=== PATIENT | female | born 1940 | race Caucasian/White ===

== ENCOUNTER → 2016-11-30 | Outpatient (CLI) | payer OTHER, BC ==
[~2016-11-30] MED LIST: ACET-1138 PO; ACET-1256 PO; ACET325T96 PO; ALT25 PO; ASPEC325 PO; ASPI81TA28 PO; BISA10SU7 RE; CEPH500C PO; DOCU-94 PO; DOCU100C31 PO; FRRG PO; GLUC10007 PO; INDA1TAB3 PO; LISI-461 PO; METO25TA3 PO; MOML PO; MULT-506 PO; MULT-614 PO; NAPR1TAB9 PO; NF656 TOP; POLY335019 PO; SENN-61 PO; TRAM-10 PO; VISCOUS LIDOCAINE
--- NOTE | 2016-11-30 12:15 | DIAGNOSTIC IMAGING REPORT ---
RIGHT HIP 2 VIEWS CLINICAL HISTORY: Right hip pain. FINDINGS: AP and frog-leg views the right hip are compared to study dated 07/13/2016. The skeletal structures are osteopenic. No fracture is seen. Advanced arthritic change is present in the right hip, with near complete loss of the joint space. There is flattening of the femoral head with sclerosis and subchondral cyst formation present within both the femoral head and the acetabulum. Sclerotic change is also seen in the right sacroiliac joint. Lumbosacral spondylosis is partially imaged. An enthesophyte arises from the right anterior superior iliac spine. The overlying soft tissues are normal as visualized. Numerous phleboliths are observed in the pelvis. IMPRESSION: 1. No acute bony abnormality is identified. 2. Osteopenia and advanced arthritic change of the right hip as detailed above. This is unchanged to modestly progressed from 07/13/2016. Electronically signed by: Elmo Ramey M.D. 11/30/2016 12:14 PM Dictated Date/Time: 11/30/2016 12:10 PM
== END | disposition home or self-care (01) ==
LOC: C.RAD1850 11:57
PROVIDERS: ATTEND Physician Assistant
DX: M25.551 Pain in right hip (principal); M85.88 Other specified disorders of bone density and structure, other site; M16.11 Unilateral primary osteoarthritis, right hip

== ENCOUNTER → 2017-01-04 | Outpatient (CLI) | payer OTHER, BC ==
[2017-01-04 17:19] LABS: BASO % 0.2 %; BASO ABS # 0.02 K/uL (0-0.2); COMPLETE YES; EOS % 1.2 %; IG% 0.1 %; LYMPH % 16.4 %; LYMPH ABS # 1.49 K/uL (1.2-3.4); MEAN CELL VOLUME 89.9 fL (80-100); MEAN CORPUSCULAR HEMOGLOBIN 30.5 pg (25-34); MEAN CORPUSCULAR HGB CONC 33.9 g/dl (32-36); MEAN PLATELET VOLUME 10.5 fL (7.4-10.4); MONO % 3.3 %; NEUT % 78.8 %; PLATELET COUNT 238 K/uL (130-400); RED BLOOD COUNT 3.67 M/uL (4.2-5.4); WHITE BLOOD COUNT 9.09 K/uL (4.8-10.8)
[2017-01-04 17:49] LABS: BLOOD UREA NITROGEN 29 mg/dl (7-18); BUN/CREATININE RATIO 28.5 (10-20); CALCIUM 8.8 mg/dl (8.5-10.1); CARBON DIOXIDE 29 mmol/L (21-32); CHLORIDE 108 mmol/L (98-107); GLUCOSE 98 mg/dl (70-99); SODIUM 145 mmol/L (136-145)
== END | disposition home or self-care (01) ==
LOC: C.LAB1850 16:08
PROVIDERS: ATTEND Internal Medicine
DX: I10 Essential (primary) hypertension (principal)

== ENCOUNTER → 2017-01-23 | Outpatient (CLI) | payer OTHER, BC | END | disposition home or self-care (01) | LOC: C.LABSPEC 11:30 | PROVIDERS: ATTEND Internal Medicine | DX: M25.551 Pain in right hip (principal) ==

== ENCOUNTER → 2017-01-26 | Outpatient (CLI) | payer OTHER, BC ==
[~2017-01-26] MED LIST changes: -MULT-506 PO
[2017-01-26 12:38] LABS: FERRITIN 265.2 ng/ml (8.0-388.0)
== END | disposition home or self-care (01) ==
LOC: C.LAB1850 10:15
PROVIDERS: ATTEND Internal Medicine
DX: D64.9 Anemia, unspecified (principal)

== ENCOUNTER → 2017-02-08 | Outpatient (CLI) | payer OTHER, BC ==
[2017-02-10 18:34] LABS: ALBUMIN 4.5 G/DL (3.8-4.8); TOTAL PROTEIN 7.5 G/DL (6.2-8.3)
== END | disposition home or self-care (01) ==
LOC: C.LAB1850 11:59
PROVIDERS: ATTEND Internal Medicine
DX: Z00.00 Encounter for general adult medical examination without abnormal findings (principal)

== ENCOUNTER 2017-02-18 05:16 | Inpatient (IN) | payer OTHER, BC ==
[2017-01-24 10:57] VITALS: BMI 26.0
--- NOTE | 2017-01-24 11:30 | PAT Medication Instructions ---
Service Date Jan 24, 2017. Current Home Medication List Acetaminophen Tab (Tylenol), 325 MG PO Q4H Aspirin (Aspirin Ec), 81 MG PO QAM Docusate Sodium (Colace), 1 CAP PO BID Glucosamine Sulfate (Glucosamine), 1,000 MG PO BID Indapamide (Lozol), 1.25 MG PO QAM Metoprolol Succ (Toprol Xl) (Toprol-Xl), 25 MG PO BID Naproxen (Aleve), 220 MG PO PRN Ramipril (Altace *), 2.5 MG PO QAM Tramadol (Ultram), 50 MG PO Q4H PRN for Pain Medication Instructions For Your Scheduled Surgery - Check with surgeon for instructions: Naproxen (Aleve), 220 MG PO PRN - Hold the following medications 2 weeks prior to surgery: Glucosamine Sulfate (Glucosamine), 1,000 MG PO BID - Hold the following medications the morning of surgery: Docusate Sodium (Colace), 1 CAP PO BID Ramipril (Altace *), 2.5 MG PO QAM Indapamide (Lozol), 1.25 MG PO QAM - Take the following medications the morning of surgery with a sip of water: Metoprolol Succ (Toprol Xl) (Toprol-Xl), 25 MG PO BID Acetaminophen Tab (Tylenol), 325 MG PO Q4H (if needed) Tramadol (Ultram), 50 MG PO Q4H PRN for Pain (okay to take up to 4 hours prior to surgery if needed) Aspirin (Aspirin Ec), 81 MG PO QAM (okay to continue per surgeon) - Take the following medications as scheduled the night before surgery: Metoprolol Succ (Toprol Xl) (Toprol-Xl), 25 MG PO BID Acetaminophen Tab (Tylenol), 325 MG PO Q4H (if needed) Tramadol (Ultram), 50 MG PO Q4H PRN for Pain (if needed) If you have any questions please call us at [phone] or [phone] or [phone]
[2017-01-24 11:58] LABS: BASO % 0.1 %; BASO ABS # 0.01 K/uL (0-0.2); COMPLETE YES; EOS % 1.1 %; HEMATOCRIT 32.7 % (37-47); IG% 0.3 %; LYMPH % 15.7 %; LYMPH ABS # 1.14 K/uL (1.2-3.4); MEAN CELL VOLUME 88.9 fL (80-100); MEAN CORPUSCULAR HEMOGLOBIN 29.6 pg (25-34); MEAN CORPUSCULAR HGB CONC 33.3 g/dl (32-36); MEAN PLATELET VOLUME 9.9 fL (7.4-10.4); MONO % 2.9 %; NEUT % 79.9 %; PLATELET COUNT 232 K/uL (130-400); RED BLOOD COUNT 3.68 M/uL (4.2-5.4); WHITE BLOOD COUNT 7.25 K/uL (4.8-10.8)
[2017-01-24 12:08] LABS: PARTIAL THROMBOPLASTIN RATIO 0.9; PROTHROMBIN TIME (PATIENT) 10.7 SECONDS (9.0-12.0)
--- NOTE | 2017-01-24 12:19 | DIAGNOSTIC IMAGING REPORT ---
CHEST PREADMISSION(PA/LAT) CLINICAL HISTORY: Preoperative evaluation. COMPARISON STUDY: Chest radiograph June 13, 2007. FINDINGS: Right axillary surgical clips are noted. There is no pneumothorax or pleural effusion. There is no evidence of pulmonary edema. Cardiomediastinal silhouette is stable. IMPRESSION: No acute cardiopulmonary findings. Electronically signed by: Jeffery Garza M.D. 01/24/2017 12:18 PM Dictated Date/Time: 01/24/2017 12:17 PM
--- NOTE | 2017-02-14 22:27 | History and Physical ---
History & Physical Date Feb 14, 2017. Chief Complaint Right Hip Pain History of Present Illness The patient is a 77 year old female with complaints of right hip pain starting several months ago. It has gotten worse quickly to the point that she has been using a cane to get around the last several months. Mostly groin and thigh pain. Failed NSAID and Tramadol management. Past Medical/Surgical History HTN Breast Cancer Anxiety Mastectomy Oophorectomy Additional History Hepatic Disease: No Endocrine Disorder: No Kidney Disease: No Hypertension: Yes Heart Disease: No Bleeding Tendencies: No Infectious Diseases: No Allergies Coded Allergies: Povidone (Verified Allergy, Unknown, REDNESS, 01/24/17) Home Medications Scheduled Acetaminophen Tab (Tylenol), 325 MG PO Q4H Aspirin (Aspirin Ec), 81 MG PO QAM Docusate Sodium (Colace), 1 CAP PO BID Glucosamine Sulfate (Glucosamine), 1,000 MG PO BID Indapamide (Lozol), 1.25 MG PO QAM Metoprolol Succ (Toprol Xl) (Toprol-Xl), 25 MG PO BID Naproxen (Aleve), 220 MG PO PRN Ramipril (Altace *), 2.5 MG PO QAM Scheduled PRN Tramadol (Ultram), 50 MG PO Q4H PRN for Pain Physical Examination Skin: warm/dry, no rash Eyes: normal inspection, EOMI, sclerae normal ENT: normal ENT inspection, pharynx normal Head: normocephalic, atraumatic Neck: supple, no adenopathy, trachea midline Respiratory/Chest: lungs clear, normal breath sounds, no respiratory distress Cardiovascular: regular rate, rhythm, no edema, no murmur Abdomen / GI: normal bowel sounds, non tender Back: normal inspection Extremities: normal inspection, normal range of motion Neurologic/Psych: no motor/sensory deficits, alert, normal reflexes, oriented x 3 Addiitonal Comments: X-rays - Advanced Right Hip DJD with loss of joint space and cystic changed of femoral head and acetabulum Diagnosis Advanced Right Hip DJD Plan of Treatment Right Total Hip Arthroplasty
[~2017-02-18] VITALS: Ht 162.6 cm; Wt 70.0 kg
[2017-02-18] VITALS (18 sets, daily range): BP systolic 108–148; BP diastolic 64–86; PULSE 74–102; TEMP 36.3–37.6; O2SAT 94–100; Ht 162.6 cm; Wt 70.0 kg
[~2017-02-18 05:16] MED LIST changes: -ACET-1138 PO; -ACET-1256 PO; -ASPEC325 PO; -BISA10SU7 RE; -CEPH500C PO; -DOCU100C31 PO; -FRRG PO; -GLUC10007 PO; -INDA1TAB3 PO; -LISI-461 PO; -METO25TA3 PO; -MOML PO; -MULT-614 PO; -NF656 TOP; -POLY335019 PO; -SENN-61 PO; -VISCOUS LIDOCAINE
[2017-02-18] MEDS ORDERED: FAMOTIDINE 20 MG TAB PO SCH (06:00)
[2017-02-18] MEDS ORDERED: LACTATED RINGER'S 1000ML 1,000 ML IV SCH (06:00)
[2017-02-18] MEDS ORDERED: SCOPOLAMINE 1.5 MG TDSY TD SCH (06:00)
[2017-02-18] MEDS ORDERED: GABAPENTIN 300 MG CAP PO SCH (06:00)
[2017-02-18] MEDS ORDERED: METOCLOPRAMIDE HCL 10 MG TAB PO SCH (06:00)
[2017-02-18] MEDS ORDERED: ACETAMINOPHEN 500 MG TAB PO SCH (06:00)
[2017-02-18] MEDS ORDERED: TRANEXAMIC ACID INJ 1,000 MG in SODIUM CHLORIDE 0.9% 100ML 100 ML IV SCH ×2 (06:00→16:00)
[2017-02-18] MEDS ORDERED: CEFAZOLIN 2000 MG/60 ML D5W 60 ML IV SCH (06:00)
[2017-02-18] MEDS ORDERED: LACTATED RINGER'S 1000ML 500 ML IV ONE (06:00)
[2017-02-18] MEDS ORDERED: LACTATED RINGER'S 1000ML IV SCH (06:00)
[2017-02-18] MEDS ORDERED: BUPIVACAINE 0.5 % 5 MG/1 ML PF 10ML VIAL ONE (06:39)
[2017-02-18] MEDS ORDERED: MIDAZOLAM HCL 1 MG/ML 2ML VIAL ONE (06:41)
[2017-02-18] MEDS ORDERED: MoRPHine SULFATE PF 1 MG/ML 10 ML AMP/VIAL ONE (06:47)
[2017-02-18] MEDS ORDERED: BACITRACIN 50000 UNIT VIAL ONE (06:50)
[2017-02-18] MEDS ORDERED: BUPIVACAINE/EPINEPHRINE 0.5% MPF 1:200,000 10 ML VIAL ONE ×2 (06:50→06:52)
--- NOTE | 2017-02-18 06:52 | History & Physical Bridge Note ---
H&P Re-Evaluation Bridge Note: I have examined the patient, reviewed the History & Physical and in the interval since the performance of the History & Physical I have noted the following changes of clinical significance: No changes noted
[2017-02-18] MEDS ORDERED: LIDOCAINE HCL 2% 2 ML VIAL (20MG/ML) ONE (07:11)
[2017-02-18] MEDS ORDERED: PROPOFOL IV EMULSION 10 MG/ML 20 ML VIAL IV ONE (07:11)
[2017-02-18] MEDS ORDERED: PHENYLEPHRINE 100MCG/ML 5ML SYR ONE (08:12)
--- NOTE | 2017-02-18 08:28 | [facility] Post Operative Brief Note ---
Immediate Operative Summary Operative Date Feb 18, 2017. Pre-Operative Diagnosis Right hip degenerative joint disease Post-Operative Diagnosis Right hip degenerative joint disease Procedure(s) Performed Right Total Hip Arthroplasty; Uncemented Surgeon Dr. Obando Lard Refiner Surgeon(s) Will Bae PA-C Estimated Blood Loss 200CC Findings Right Hip DJD Fluids (cc crystalloids) 1000 cc Specimens A. Right femoral head Drains None Anesthesia Spinal Complication(s) None Disposition Recovery Room / PACU
[2017-02-18] MEDS ORDERED: TRAMADOL HCL 50 MG TAB PO PRN ×2 (08:30→23:00)
[2017-02-18] MEDS ORDERED: SILVER SULFADIAZINE 1% CR 50 GM JAR EXT PRN (08:30)
[2017-02-18] MEDS ORDERED: BISACODYL 10 MG SUPP PR PRN (08:30)
[2017-02-18] MEDS ORDERED: MAGNESIUM HYDROXIDE SUSP 30 ML UDC PO PRN (08:30)
[2017-02-18] MEDS ORDERED: ALUMINUM/MAGNESIUM/SIMETH (MAALOX MAX) 30 ML UDC PO PRN (08:30)
[2017-02-18] MEDS ORDERED: NALOXONE HCL INJ 0.08 MG in SYRINGE 1.8 ML IV PRN (08:51)
[2017-02-18] MEDS ORDERED: LACTATED RINGER'S 1000ML 500 ML IV PRN (08:51)
[2017-02-18] MEDS ORDERED: NALOXONE HCL INJ 1 MG in SODIUM CHLORIDE 0.9% 1000ML 1,000 ML IV PRN ×4 (08:51)
[2017-02-18] MEDS ORDERED: SODIUM CHLORIDE 0.9% 1000ML 1,000 ML IV PRN (08:51)
--- NOTE | 2017-02-18 08:56 | DIAGNOSTIC IMAGING REPORT ---
RIGHT PELVIS/UNILATERAL HIP 1 VIEW CLINICAL HISTORY: 77 years-old Female presenting with status post right hip arthroplasty. TECHNIQUE: Portable frontal view of the pelvis and lateral view of the right hip were obtained. COMPARISON: 01/10/2017 radiograph of the pelvis and 11/30/2016 radiograph of the right hip. FINDINGS: Patient is status post total right hip arthroplasty. No apparent hardware complication. Extensive soft tissue emphysema and overlying skin alysia, expected postsurgical findings. Left hip joint congruent. No acute osseous injury or malalignment. Dietrich catheter in place. Multiple phleboliths. Normal pelvic bowel gas pattern. IMPRESSION: Expected postsurgical finding status post total right hip arthroplasty. Electronically signed by: Torin Ramos M.D. 02/18/2017 8:55 AM Dictated Date/Time: 02/18/2017 8:53 AM
[2017-02-18] MEDS ORDERED: ATROPINE SULFATE 0.1 MG/ML 5ML SYR IV PRN (09:00)
[2017-02-18] MEDS ORDERED: KETOROLAC TROMETHAMINE 15 MG/ML VIAL IV. PRN (09:00)
[2017-02-18] MEDS ORDERED: NALBUPHINE HCL INJ 10 MG/ML AMP IV PRN (09:00)
[2017-02-18] MEDS ORDERED: NALOXONE HCL 0.4 MG/1 ML VIAL/CARP IV PRN (09:00)
[2017-02-18] MEDS ORDERED: EpHEDrine SULFATE INJ 50 MG/ML AMP IV PRN ×2 (09:00)
[2017-02-18] MEDS ORDERED: KETOROLAC TROMETHAMINE 30 MG/ML VIAL IV. PRN (09:00)
[2017-02-18] MEDS ORDERED: MEPERIDINE HCL 25 MG/ML CARP IV PRN (09:00)
[2017-02-18] MEDS ORDERED: DiphenhydrAMINE HCL 50 MG/ML VIAL IV PRN (09:00)
[2017-02-18] MEDS ORDERED: HYDROmorphone INJ 2 MG/ML SYR/VIAL IV PRN (09:00)
[2017-02-18] MEDS ORDERED: MoRPHine SULFATE PF 1 MG/ML 10 ML AMP/VIAL EPI PRN (09:00)
[2017-02-18] MEDS ORDERED: NO NARCOTICS OR SEDATIVES SCH (09:00)
[2017-02-18] MEDS ORDERED: PHENYLEPHRINE 100MCG/ML 5ML SYR IV PRN (09:00)
[2017-02-18] MEDS ORDERED: PROMETHAZINE HCL INJ 6.25 MG in SODIUM CHLORIDE 0.9% 50ML 50 ML IV PRN (09:00)
[2017-02-18] MEDS ORDERED: ONDANSETRON INJ 2 MG/ML 2 ML VIAL IV PRN ×3 (09:00→23:00)
--- NOTE | 2017-02-18 09:54 | Anesthesiology Progress Note ---
Anesthesia Post Op Note Date & Time Feb 18, 2017 at 09:54 Vital Signs Pain Intensity: 0 Vital Signs Past 12 Hours Date Time Temp Pulse Resp B/P (MAP) Pulse Ox O2 Delivery O2 Flow Rate FiO2 02/18/17 09:12 75 16 100 02/18/17 09:12 75 16 02/18/17 09:11 112/63 02/18/17 09:07 74 20 100 02/18/17 09:07 74 20 02/18/17 09:06 117/62 02/18/17 09:02 75 18 02/18/17 09:02 77 18 100 02/18/17 09:01 134/54 02/18/17 09:00 36.8 02/18/17 08:59 81 18 100 02/18/17 08:59 78 18 02/18/17 08:56 127/73 02/18/17 08:54 79 18 100 02/18/17 08:54 77 18 02/18/17 08:53 80 14 02/18/17 08:53 82 14 100 02/18/17 08:52 110/56 02/18/17 08:48 80 22 100 02/18/17 08:48 81 22 02/18/17 08:43 78 15 97 02/18/17 08:43 77 15 02/18/17 08:42 126/47 02/18/17 08:39 79 16 100 02/18/17 08:39 78 16 02/18/17 08:36 115/50 02/18/17 08:34 82 15 02/18/17 08:34 81 15 97 02/18/17 08:31 126/46 02/18/17 08:30 122/64 02/18/17 08:29 36.4 88 16 122/64 100 Mask 10 02/18/17 08:29 16 02/18/17 08:29 87 16 02/18/17 05:58 36.5 92 20 148/86 99 Room Air Notes Mental Status: alert / awake / arousable, participated in evaluation Pt Amnestic to Procedure: Yes Nausea / Vomiting: adequately controlled Pain: adequately controlled Airway Patency, RR, SpO2: stable & adequate BP & HR: stable & adequate Hydration State: stable & adequate Anesthetic Complications: no major complications apparent
[2017-02-18] MEDS: DOCUSATE SODIUM 100 MG CAP PO SCH ×2 (10:52→21:18)
[2017-02-18] MEDS: ASPIRIN 325 MG ECTAB PO SCH ×2 (10:53→21:18)
[2017-02-18] MEDS: INDAPAMIDE 1.25 MG TAB PO SCH (10:53)
[2017-02-18] MEDS: CEROVITE ADV FORMULA TAB PO SCH (10:53)
[2017-02-18] MEDS: MULTIVITAMIN TAB PO SCH (10:53)
[2017-02-18] MEDS: PANTOprazole SOD 40 MG TAB PO SCH (10:53)
[2017-02-18] MEDS: D5W AND 1/2NSS + 20MEQ KCL 1,000 ML IV SCH ×2 (11:53→21:18)
[2017-02-18] MEDS: FERROUS GLUCONATE 324 MG TAB PO SCH ×2 (13:28→17:55)
[2017-02-18] MEDS: CEFAZOLIN IV 1,000 MG in DEXTROSE 5% 50ML 50 ML IV SCH ×2 (13:56→21:19)
--- NOTE | 2017-02-18 14:10 | PROGRESS NOTE ---
DATE: 02/18/2017 DATE: 02/18/2017. SUBJECTIVE: A 77-year-old female postop from a right total hip replacement. She is doing well. Not having any pain yet. No chest pain or shortness of breath. Not feeling dizzy or lightheaded. OBJECTIVE: VITAL SIGNS: Temperature 36.5. Vital signs stable. PHYSICAL EXAMINATION: GENERAL: Reveals a pleasant elderly female. She is sitting up in bed and looks pretty comfortable. She is talking to her son. LUNGS: Clear to auscultation. HEART: Regular rate and rhythm. ABDOMEN: Soft, nontender, nondistended. EXTREMITY EXAMINATION: Grossly neurovascularly intact except as follows: Examination of the right leg reveals leg lengths to be equal. Hip is located. Dressing is clean, dry and intact. Thigh is soft and supple. She can dorsiflex and plantarflex her foot appropriately. She is neurologically intact. X-RAYS: X-rays of the right hip from recovery room were reviewed. It shows right uncemented total hip arthroplasty. The components looked to be in good position. No signs of problems. ASSESSMENT: A 77-year-old female postop from a right total hip replacement, doing well. Pain is controlled. Hip is located. She is neurologically intact. PLAN: 1. DVT prophylaxis including thigh-high TEDs, SCDs, and aspirin twice a day. 2. PT/OT. Weight bear as tolerated. Right total hip protocol. 3. Pain control. Doing well with current pain regimen. 4. IV antibiotics x24 hours. 5. Disposition. She is hoping to be discharged to [facility] for rehab stay. If not [facility] maybe [place].
[2017-02-18] MEDS: CHECK SCOPOLAMINE PATCH PLACEMENT SCH ×2 (16:18→23:33)
[2017-02-18] MEDS: SENNA 8.6 MG TAB PO SCH (21:18)
[2017-02-18] MEDS: METOPROLOL SUCC 25MG EXT REL TAB PO SCH (21:18)
[2017-02-18] MEDS ORDERED: DC INTRASPINAL MORPHINE SCH (23:00)
[2017-02-18] MEDS ORDERED: HYDROmorphone INJ 0.5 MG/0.5 ML SYR IV PRN (23:00)
[2017-02-18] MEDS ORDERED: ZOLPIDEM TARTRATE 5 MG TAB PO PRN (23:00)
[2017-02-18] MEDS ORDERED: METOCLOPRAMIDE HCL INJ 5 MG/ML 2 ML VIAL IV PRN (23:00)
[2017-02-18] MEDS: KETOROLAC TROMETHAMINE 15 MG/ML VIAL IV. SCH (23:09)
[2017-02-19 03:54] VITALS: BP 121/70; PULSE 83; TEMP 36.9; O2SAT 98
[2017-02-19] MEDS: KETOROLAC TROMETHAMINE 15 MG/ML VIAL IV. SCH ×4 (05:23→22:51)
[2017-02-19 06:27] LABS: BASO % 0.1 %; BASO ABS # 0.01 K/uL (0-0.2); EOS % 0.3 %; HEMATOCRIT 25.4 % (37-47); IG% 0.2 %; LYMPH % 8.4 %; LYMPH ABS # 0.74 K/uL (1.2-3.4); MEAN CELL VOLUME 89.1 fL (80-100); MEAN CORPUSCULAR HEMOGLOBIN 29.5 pg (25-34); MEAN CORPUSCULAR HGB CONC 33.1 g/dl (32-36); MEAN PLATELET VOLUME 10.1 fL (7.4-10.4); PLATELET COUNT 163 K/uL (130-400); RED BLOOD COUNT 2.85 M/uL (4.2-5.4); WHITE BLOOD COUNT 8.78 K/uL (4.8-10.8)
[2017-02-19] MEDS: D5W AND 1/2NSS + 20MEQ KCL 1,000 ML IV SCH (06:44)
[2017-02-19 06:59] LABS: BUN/CREATININE RATIO 21.7 (10-20); CALCIUM 8.2 mg/dl (8.5-10.1); CREATININE 1.1 mg/dl (0.60-1.20); POTASSIUM 3.6 mmol/L (3.5-5.1)
[2017-02-19 07:05] LABS: COMPLETE YES
[2017-02-19 07:22] VITALS: BP 125/74; PULSE 75; TEMP 36.9; O2SAT 95
[2017-02-19] MEDS ORDERED: FRRG PO (08:45)
[2017-02-19] MEDS ORDERED: ACET-1138 PO (08:45)
[2017-02-19] MEDS ORDERED: ASPEC325 PO (08:45)
[2017-02-19] MEDS ORDERED: TRAM-10 PO (08:46)
[2017-02-19] MEDS: CHECK SCOPOLAMINE PATCH PLACEMENT SCH ×2 (08:47→16:25)
[2017-02-19] MEDS: DOCUSATE SODIUM 100 MG CAP PO SCH ×2 (08:48→21:08)
[2017-02-19] MEDS: ASPIRIN 325 MG ECTAB PO SCH ×2 (08:48→21:08)
[2017-02-19] MEDS: ENALAPRIL MALEATE 10 MG TAB PO SCH (08:49)
[2017-02-19] MEDS: FERROUS GLUCONATE 324 MG TAB PO SCH ×3 (08:49→17:41)
[2017-02-19] MEDS: CEROVITE ADV FORMULA TAB PO SCH (08:49)
[2017-02-19] MEDS: METOPROLOL SUCC 25MG EXT REL TAB PO SCH ×2 (08:49→21:00)
[2017-02-19] MEDS: PANTOprazole SOD 40 MG TAB PO SCH (08:50)
[2017-02-19] MEDS: MULTIVITAMIN TAB PO SCH (08:50)
[2017-02-19] MEDS: INDAPAMIDE 1.25 MG TAB PO SCH (08:51)
--- NOTE | 2017-02-19 09:45 | PROGRESS NOTE ---
DATE: 02/19/2017 SUBJECTIVE: A 77-year-old white female postop day 1 from right total hip replacement. She is doing well. She says she has no pain. No chest pain or shortness of breath. Not feeling dizzy or lightheaded. OBJECTIVE: VITAL SIGNS: Temperature 36.9. Vital signs stable. PHYSICAL EXAMINATION: GENERAL: Reveals a pleasant elderly female. She is sitting up in bed and looks pretty comfortable. LUNGS: Clear to auscultation. HEART: Has a regular rate and rhythm. ABDOMEN: Soft, nontender, nondistended. EXTREMITIES: Grossly neurovascularly intact except as follows: Examination of the right leg reveals the leg to be well aligned. Her dressing is clean, dry and intact. Thigh is soft and supple. Hip is located. NEUROLOGIC: She is neurologically intact. LABORATORY DATA: Hemoglobin 8.4. Hematocrit 25.4. Electrolytes are stable. ASSESSMENT: A 77-year-old white female postop day 1 from a right total hip replacement, doing pretty well. She has got chronic anemia and currently anemic but without symptoms. Her pain is controlled. Hip is located. She is neurologically intact. PLAN: 1. DVT prophylaxis including thigh-high TEDs, SCDs, and aspirin twice a day. 2. PT/OT. She can weight bear as tolerated. Right total hip protocol. 3. Pain control, doing well with current pain regimen. Really reports minimal pain. 4. Anemia. We will recheck her H&H tomorrow. She has got some chronic anemia and we will continue iron supplementation. 5. Disposition: She is hoping to be discharged to [facility]. If she does not qualify there, she would likely consider [place].
[2017-02-19 13:16] VITALS: BP 101/61; PULSE 82; TEMP 36.8; O2SAT 98
[2017-02-19 14:54] VITALS: BP 90/58; PULSE 77; TEMP 36.7; O2SAT 98
[2017-02-19 14:56] VITALS: BP 92/59
[2017-02-19] MEDS: SENNA 8.6 MG TAB PO SCH (21:08)
[2017-02-19 23:30] VITALS: BP 128/71; PULSE 88; TEMP 36.9; O2SAT 98
[2017-02-20] MEDS: CHECK SCOPOLAMINE PATCH PLACEMENT SCH ×2 (00:02→08:00)
[2017-02-20] MEDS: KETOROLAC TROMETHAMINE 15 MG/ML VIAL IV. SCH ×2 (05:29→11:00)
[2017-02-20] MEDS ORDERED: MULT-614 PO (05:52)
[2017-02-20 06:17] VITALS: BP 101/66; PULSE 102; TEMP 36.8; O2SAT 97
[2017-02-20] MEDS ORDERED: METO25TA3 PO (06:34)
[2017-02-20] MEDS ORDERED: INDA1TAB3 PO (06:34)
[2017-02-20 06:35] LABS: HEMATOCRIT 25.6 % (37-47)
--- NOTE | 2017-02-20 08:06 | Discharge Instructions ---
Discharge Instructions Date of Service Feb 20, 2017. Admission Reason for Admission: Right Hip Degenerative Joint Disease Discharge Discharge Diagnosis / Problem: Right Hip Replacement Discharge Goals Goal(s): Decrease discomfort, Improve function, Increase independence, Improve disease control, Therapeutic intervention Activity Recommendations Activity Level: Assistance Required (Total Hip Precautions) . Additional Information Patient informed of condition: Yes Advance Directives: No DNR: No Level of Care: Acute Rehab Communicable Disease: No Prognosis: Improving Instructions / Follow-Up Instructions / Follow-Up ACTIVITY RECOMMENDATIONS: Physical Therapy: * Aggressive physical therapy is not usually needed. You will learn to take care of yourself safely and walk. * Follow the "Hip Precautions Instructions." * In some cases, the healthcare social worker at the hospital will arrange to have a therapist come to your house for the first couple of weeks to help you learn these skills. * You need to practice on your own or with the help of a family member as needed. * When you learn these skills, most of the therapy can be done on your own. Home Exercise: * You were shown a series of exercises in the hospital. Do these exercises three to four times each day including the exercises you were shown in physical therapy. Walking: * Get up and walk several times each day. For the first four weeks, try not to stand or walk for more than one hour at a time. If you do stand or walk for more than one hour, you will not hurt anything, but your leg will likely swell. * As you feel comfortable, you may change from the walker or crutches to a cane and then to independent walking. MEDICATIONS: New Medicine: * You will likely be taking one or more of these medicines: 1. Tramadol - Take, as directed, when you need it, every four to six hours to control your pain. 2. Iron Sulfate - Take two times each day for the month after surgery to help you replace the blood lost during surgery. 3. Aspirin - Thins your blood to lessen the chance of forming a blood clot. * The most common side effects of pain medicine and iron are nausea and constipation. If nausea or constipation is too much of a problem or if you have any questions about your new medicines or doses, call [facility] at [phone]. We will try to help you manage these issues. VERY IMPORTANT TO READ AND REVIEW" Pain: * The immediate post-operative period after hip replacement surgery is often quite painful. * You are given a prescription for pain medicine. You should take it, as directed, when you need it, especially before physical therapy and before going to bed. Pain that interferes with sleep is very common and can last several months. * You will likely need pain medicine for the first two to four weeks. It will not stop all of the pain. The pain will lessen and as you feel better, you may change to milder pain medicine such as Tylenol. * The most common side effects of pain medicine are nausea and constipation, so don't take more than you need. SPECIAL CARE INSTRUCTIONS: TEDs/Elastic Stockings: * The white elastic stockings help limit swelling and prevent blood clots from forming in your legs. The more you wear them, the more they work. * Wear them for six weeks. Prevention of Infection: * Take antibiotics one hour before any dental cleaning, dental work, urological procedure, gastrointestinal procedure or any invasive surgery in order to prevent your new joint from getting infected. * You may get the antibiotics from the doctor performing the procedure or you may call our office at before and we will call in a prescription to the pharmacy of your choice. Things to Watch For: * Drainage from the incision site that occurs more than one week after your surgery. * Severely increased leg pain or swelling. * Increased redness at the incision site. * Fever above 102 degrees Fahrenheit. * Unusual chest pain or shortness of breath. * Unusual pain or burning with urination. Call [facility] at with any of the above problems or if you have any questions about your medicines or recovery. FOLLOW UP VISIT: Make an appointment to see your doctor for approximately two weeks after surgery for a progress check and staple removal by calling the office at . Current Hospital Diet Patient's current hospital diet: Regular Diet Discharge Diet Recommended Diet: Regular Diet Procedures Procedures Performed: Right Total Hip Arthroplasty; Uncemented Pending Studies Studies pending at discharge: no Medical Emergencies . Who to Call and When: Medical Emergencies: If at any time you feel your situation is an emergency, please call 911 immediately. . Non-Emergent Contact Non-Emergency issues call your: Surgeon . . "Provider Documentation" section prepared by Selvin Obando. . Core Measure Problem Core Measures: None
[2017-02-20] MEDS: DOCUSATE SODIUM 100 MG CAP PO SCH (09:17)
[2017-02-20] MEDS: CEROVITE ADV FORMULA TAB PO SCH (09:18)
[2017-02-20] MEDS: METOPROLOL SUCC 25MG EXT REL TAB PO SCH (09:18)
[2017-02-20] MEDS: PANTOprazole SOD 40 MG TAB PO SCH (09:18)
[2017-02-20] MEDS: MULTIVITAMIN TAB PO SCH (09:18)
[2017-02-20] MEDS: ENALAPRIL MALEATE 10 MG TAB PO SCH (09:18)
[2017-02-20] MEDS: ASPIRIN 325 MG ECTAB PO SCH (09:18)
[2017-02-20] MEDS: FERROUS GLUCONATE 324 MG TAB PO SCH ×2 (09:18→13:45)
[2017-02-20] MEDS: INDAPAMIDE 1.25 MG TAB PO SCH (09:18)
[2017-02-20] MEDS ORDERED: GLUC10007 PO (10:56)
--- NOTE | 2017-02-20 11:13 | PROGRESS NOTE ---
DATE: 02/20/2017 DATE: 02/20/2017. SUBJECTIVE: A 77-year-old white female postop day 2 from right total hip replacement. She is doing well. A little burning sensation intermittently in her hip area and that is it. No chest pain or shortness of breath. Pain has been well controlled. Not feeling dizzy or lightheaded. OBJECTIVE: VITAL SIGNS: Temperature 36.8. Vital signs stable. PHYSICAL EXAMINATION: GENERAL: Reveals a healthy pleasant elderly female. She is sitting up in her bedside chair eating her breakfast. She looks comfortable. LUNGS: Clear to auscultation. HEART: Regular rate and rhythm. ABDOMEN: Soft, nontender, nondistended. EXTREMITY EXAMINATION: Grossly neurovascularly intact except as follows: Examination of the right leg reveals the dressing to be clean, dry and intact. Hip is located. She is neurologically intact. LABORATORY DATA: Hemoglobin 8.4, hematocrit 25.6. ASSESSMENT: A 77-year-old white female postop day 2 from right total hip replacement, doing well. Pain is controlled. Hip is located. She is neurologically intact. She is anemic, but stable. PLAN: 1. DVT prophylaxis including thigh-high TEDs, SCDs, and aspirin twice a day. 2. PT/OT. Weightbearing as tolerated. Right total hip protocol. 3. Pain control. Doing well with current pain regimen. 4. Disposition. Plan to discharge to [facility] if approved. If not, she may consider [place].
[2017-02-20 13:49] VITALS: BP 101/66; PULSE 102; TEMP 36.8; O2SAT 97
[2017-02-20] MEDS ORDERED: ACET-1256 PO (23:09)
[2017-02-20] MEDS ORDERED: VISCOUS LIDOCAINE (23:09)
[2017-02-20] MEDS ORDERED: MOML PO (23:09)
[2017-02-20] MEDS ORDERED: DOCU100C31 PO (23:09)
[2017-02-20] MEDS ORDERED: SENN-61 PO (23:09)
[2017-02-20] MEDS ORDERED: POLY335019 PO (23:09)
[2017-02-20] MEDS ORDERED: BISA10SU7 RE (23:09)
[2017-02-20] MEDS ORDERED: NF656 TOP (23:09)
[2017-02-20] MEDS ORDERED: LISI-461 PO (23:09)
[2017-02-21] MEDS ORDERED: CEPH500C PO (01:06)
--- NOTE | 2017-02-24 15:53 | DISCHARGE SUMMARY ---
ADMITTING PHYSICIAN AND SURGEON: Dr. Obando. ADMITTING DIAGNOSIS: Right hip degenerative joint disease. SURGERY PERFORMED: Right total hip arthroplasty. SECONDARY DIAGNOSES: Hypertension, breast cancer, anxiety, mastectomy, oophorectomy. CONSULTS: None obtained. HISTORY AND PHYSICAL EXAMINATION: Well documented in patient's chart. HOSPITAL COURSE: The patient admitted on 02/18/2017 underwent total hip arthroplasty, tolerated the procedure well. There were no complications. She was transferred to the PACU postoperatively and later to the orthopedic floor for further care. She was given Ancef for antibiotic prophylaxis, GEETA stockings, SCDs and aspirin for DVT prophylaxis. Hemoglobin, hematocrit and vital signs were monitored during her hospital stay and remained stable. She developed some postoperative anemia with hemoglobin down to 8.4, did not require any blood transfusions. There were no complications. By postoperative day 2, she was tolerating a general diet, pain was controlled with oral pain medicine. She was participating in physical therapy and had no signs or symptoms of deep vein thrombosis. On postop day 2, she was transferred to a rehab facility. She was given printed discharge instructions including prescriptions for aspirin 325 mg b.i.d. and an iron supplement. Continue her home medications with the exception of her home dose of Tylenol and aspirin which were changed. She was given a prescription for tramadol for pain. Continue physical therapy, GEETA stockings, weightbearing as tolerated. Total hip precautions. Follow up in 10-12 days or sooner if there are any problems or concerns.
== END 2017-02-20 14:35 | DRG 470 ==
LOC: C.ACU 05:16 → C.3E 08:32 → ENRESERV 08:40 → C.3E 20:32
PROVIDERS: ADMIT Orthopaedic Surgery Sports Medicine; ATTEND Orthopaedic Surgery Sports Medicine
PROC: 0SR902A Replacement of Right Hip Joint with Metal on Polyethylene Synthetic Substitute, Uncemented, Open Approach (ICD-10-PCS; principal; 2017-02-18 07:00)
DX: M16.11 Unilateral primary osteoarthritis, right hip (principal); I10 Essential (primary) hypertension; D53.9 Nutritional anemia, unspecified; Z87.891 Personal history of nicotine dependence; Z79.82 Long term (current) use of aspirin; Z79.891 Long term (current) use of opiate analgesic; Z79.899 Other long term (current) drug therapy

== ENCOUNTER 2017-02-20 21:51 | Emergency (ER) | payer OTHER, BC ==
[~2017-02-20] VITALS: Ht 160 cm; Wt 72.8 kg
[~2017-02-20 21:51] MED LIST changes: +ACET-1138 PO; -ACET325T96 PO; +ASPEC325 PO; -ASPI81TA28 PO; -DOCU-94 PO; +FRRG PO; +GLUC10007 PO; +INDA1TAB3 PO; +METO25TA3 PO; +MULT-614 PO
[2017-02-20 21:56] VITALS: TEMP 37.1; Ht 160 cm; Wt 72.8 kg
[2017-02-20] MEDS ORDERED: SODIUM CHLORIDE 0.9% 1000ML 1,000 ML IV STA (22:59)
[2017-02-20] MEDS ORDERED: CEFTRIAXONE SOD INJ 1 GM ADDVIAL IV STA (22:59)
[2017-02-20] MEDS ORDERED: POLY335019 PO (23:09)
[2017-02-20] MEDS ORDERED: LISI-461 PO (23:09)
[2017-02-20] MEDS ORDERED: SENN-61 PO (23:09)
[2017-02-20] MEDS ORDERED: ACET-1256 PO (23:09)
[2017-02-20] MEDS ORDERED: MOML PO (23:09)
[2017-02-20] MEDS ORDERED: BISA10SU7 RE (23:09)
[2017-02-20] MEDS ORDERED: VISCOUS LIDOCAINE (23:09)
[2017-02-20] MEDS ORDERED: DOCU100C31 PO (23:09)
[2017-02-20] MEDS ORDERED: NF656 TOP (23:09)
[2017-02-20 23:41] LABS: URINE APPEARANCE CLEAR (CLEAR); URINE BILIRUBIN NEG (NEG); URINE COLOR YELLOW; URINE NITRITE NEG (NEG); URINE SPECIFIC GRAVITY 1.022 (1.000-1.030); UROBILINOGEN NEG (NEG); ZZURINE CULT IF INDIC CATH NO
[2017-02-20 23:42] LABS: MANUAL MICROSCOPIC REQUIRED? NO; REVIEW REQ? NO
[2017-02-21 00:18] LABS: EOS % 0.2 %; HEMATOCRIT 25.2 % (37-47); IG% 0.2 %; LYMPH % 6.6 %; LYMPH ABS # 0.69 K/uL (1.2-3.4); MEAN CORPUSCULAR HEMOGLOBIN 29.3 pg (25-34); MEAN CORPUSCULAR HGB CONC 32.5 g/dl (32-36); MEAN PLATELET VOLUME 10.4 fL (7.4-10.4); MONO % 3.9 %; NEUT % 89.1 %; PLATELET COUNT 162 K/uL (130-400); WHITE BLOOD COUNT 10.44 K/uL (4.8-10.8)
[2017-02-21 00:27] LABS: PARTIAL THROMBOPLASTIN RATIO 1.1; PROTHROMBIN TIME (PATIENT) 10.6 SECONDS (9.0-12.0)
[2017-02-21 00:39] LABS: COMPLETE YES
[2017-02-21 00:41] LABS: ALT/SGPT 73 U/L (12-78); AST/SGOT 39 U/L (15-37); BLOOD UREA NITROGEN 33 mg/dl (7-18); BUN/CREATININE RATIO 25.3 (10-20); CALCIUM 8.8 mg/dl (8.5-10.1); CARBON DIOXIDE 28 mmol/L (21-32); CHLORIDE 111 mmol/L (98-107); GLUCOSE 108 mg/dl (70-99); MAGNESIUM 1.8 mg/dl (1.8-2.4); POTASSIUM 3.4 mmol/L (3.5-5.1); SODIUM 144 mmol/L (136-145)
[2017-02-21 00:51] LABS: ALKALINE PHOSPHATASE 103 U/L (45-117); CKMB/CK RATIO 0.4 (0-3.0); THYROID STIMULATING HORMONE 0.796 uIu/ml (0.300-4.500)
[2017-02-21] MEDS ORDERED: CEPH500C PO (01:06)
--- NOTE | 2017-02-21 01:07 | EMERGENCY ROOM VISIT NOTE ---
History Report prepared by Vahe: Lorena Talavera Under the Supervision of: Dr. Steve Soliz D.O. First contact with patient: 22:48 Chief Complaint: CONFUSION Stated Complaint: [facility] Nursing Triage Summary: Pt had hip replacement on Tuesday, had hallucination of guinea pig in hospital room over the weekend, hallucination of stuffed skunk at [facility], now hallucinating of hummingbird in ED room. Does recognize these as hallucinations, denies auditory, olfactory, or gustatory hallucinations. Denies dizziness, nausea, dyspnea, or pain. NOTE: could not complete ataxia/strength score on right leg due to hip restrictions, but was able to lift leg well just not as high and didn't do gabriel/heel ataxia, but was able to hit my hand on either side with heel History of Present Illness The patient is a 77 year old female who presents to the Emergency Room with complaints of persistent visual hallucinations starting 10 months ago. The patient presents to the ED by EMS from [facility] where she is undergoing therapy after having a right hip replacement 2 days ago. She states that she has been seeing things since last April. At that time, she started having right hip pain which was diagnosed as osteoarthritis. The hallucinations started with the pain. She currently sees two hummingbirds sitting on the lights in the room. She saw a guinea pig in her hospital room previously and "queer" looking people at [facility] today. She knows that her hallucinations are not real after thinking about it, but they seem real to her at first. She does not have any other complaints. She is currently not on any pain medications or antibiotics. Source of History: patient Onset: 10 months ago Position: other (global) Quality: other (visual hallucinations) Timing: other (persistent) Associated Symptoms: No SOB Review of Systems See HPI for pertinent positives & negatives. A total of 10 systems reviewed and were otherwise negative. Past Medical & Surgical Medical Problems: (1) Right Hip DJD Family History No pertinent family history stated. Social History Smoking Status: Former Smoker Marital Status: Current/Historical Medications Scheduled Aspirin (Aspirin), 325 MG PO BID Cephalexin Monohydrate (Keflex), 500 MG PO QID Docusate Sodium (Docusate Sodium), 1 CAP PO BID Ferrous Gluconate (Ferrous Gluconate), 324 MG PO BIDM Glucosamine Sulfate (Glucosamine), 1,000 MG PO BID Indapamide (Lozol), 1.25 MG PO QAM Lidocaine (Lidoderm Patch 5%), 2 PATCH TOP QAM Lisinopril (Zestril), 10 MG PO DAILY Metoprolol Succ (Toprol Xl) (Toprol-Xl), 25 MG PO BID Multiple Vitamins W/ Minerals (Centrum Silver Ultra [place]), 1 TAB PO DAILY [Viscous Lidocaine], PRN Scheduled PRN Acetaminophen (Tylenol), 500 MG PO Q4 PRN for PAIN 1-3, FEVER >101 Bisacodyl (Bisac-Evac), 10 MG RE Q24H PRN for Constipation Magnesium Hydroxide (Milk Of Magnesia), 30 ML PO Q24H PRN for NO BM PAST 1 DAY Naproxen (Aleve), 220 MG PO Q12 PRN for Pain Polyethylene Glycol 3350 (Miralax), 17 GM PO DAILY PRN for Constipation Senna (Senokot), 1 TAB PO Q24H PRN for Constipation Tramadol (Ultram), 50 MG PO Q4H PRN for Pain Allergies Coded Allergies: Povidone (Verified Allergy, Mild, rash, hives- where applied, 02/18/17) Physical Exam Vital Signs Date Time Temp Pulse Resp B/P (MAP) Pulse Ox O2 Delivery O2 Flow Rate FiO2 02/21/17 00:30 176/71 02/21/17 00:11 108 18 02/20/17 23:56 103 19 02/20/17 23:41 110 20 02/20/17 23:31 165/81 02/20/17 23:26 106 17 97 02/20/17 23:11 113 16 98 02/20/17 23:06 104 23 98 02/20/17 23:01 152/101 02/20/17 22:51 110 18 98 02/20/17 22:36 102 22 98 02/20/17 22:31 158/91 02/20/17 22:21 107 20 94 02/20/17 22:14 106 02/20/17 22:06 108 24 99 02/20/17 22:00 179/100 02/20/17 21:56 37.1 109 20 179/100 99 Room Air Physical Exam CONSTITUTIONAL/VITAL SIGNS: Reviewed / noted above. GENERAL: Non-toxic in appearance. INTEGUMENTARY: Warm, dry, and [place]. HEAD: Normocephalic. EYES: without scleral icterus or trauma. ENT/OROPHARYNX: clear and moist. LYMPHADENOPATHY/NECK: Is supple without lymphadenopathy or meningismus. RESPIRATORY: Lungs clear and equal. CARDIOVASCULAR: Regular rate and rhythm. GI/ABDOMEN: Soft and nontender. No organomegaly or pulsatile mass. No rebound or guarding. Normal bowel sounds. EXTREMITIES: There is erythema and warmth to the right medial thigh without discharge or abscess. Right lateral thigh in the area of the alysia from the surgical procedure is without erythema or discharge. BACK: No CVA tenderness. NEUROLOGICAL: Intact without focal deficits. PSYCHIATRIC: normal affect. MUSCULOSKELETAL: Normally developed with good muscle tone. Medical Decision & Procedures ER Provider Diagnostic Interpretation: X ray results and stated below per my interpretation. Radiology results as stated below per my review and [facility] radiologist interpretation: Chest X-ray: Negative for acute disease, no pneumonia or pneumothorax. CT head: No intracranial hemorrhage or mass effect. Laboratory Results 02/20/17 23:59 Red Blood Count 2.80, Mean Corpuscular Volume 90.0, Mean Corpuscular Hemoglobin 29.3, Mean Corpuscular Hemoglobin Concent 32.5, Mean Platelet Volume 10.4, Neutrophils (%) (Auto) 89.1, Lymphocytes (%) (Auto) 6.6, Monocytes (%) (Auto) 3.9, Eosinophils (%) (Auto) 0.2, Basophils (%) (Auto) 0.0, Neutrophils # (Auto) 9.30, Lymphocytes # (Auto) 0.69, Monocytes # (Auto) 0.41, Eosinophils # (Auto) 0.02, Basophils # (Auto) 0.00 02/20/17 23:59 Test 02/20/17 23:25 02/20/17 23:59 Urine Color YELLOW Urine Appearance CLEAR (CLEAR) Urine pH 5.0 (4.5-7.5) Urine Specific [place] 1.022 (1.000-1.030) Urine Protein NEG (NEG) Urine Glucose (UA) NEG (NEG) Urine Ketones TRACE (NEG) Urine Occult Blood NEG (NEG) Urine Nitrite NEG (NEG) Urine Bilirubin NEG (NEG) Urine Urobilinogen NEG (NEG) Urine Leukocyte Esterase NEG (NEG) Urine WBC (Auto) 1-5 /hpf (0-5) Urine RBC (Auto) 0-4 /hpf (0-4) Urine Hyaline Casts (Auto) 1-5 /lpf (0-5) Urine Epithelial Cells (Auto) 5-10 /lpf (0-5) Urine Bacteria (Auto) NEG (NEG) White Blood Count 10.44 K/uL (4.8-10.8) Red Blood Count 2.80 M/uL (4.2-5.4) Hemoglobin 8.2 g/dL (12.0-16.0) Hematocrit 25.2 % (37-47) Mean Corpuscular Volume 90.0 fL (80-100) Mean Corpuscular Hemoglobin 29.3 pg (25-34) Mean Corpuscular Hemoglobin Concent 32.5 g/dl (32-36) Platelet Count 162 K/uL (130-400) Mean Platelet Volume 10.4 fL (7.4-10.4) Neutrophils (%) (Auto) 89.1 % Lymphocytes (%) (Auto) 6.6 % Monocytes (%) (Auto) 3.9 % Eosinophils (%) (Auto) 0.2 % Basophils (%) (Auto) 0.0 % Neutrophils # (Auto) 9.30 K/uL (1.4-6.5) Lymphocytes # (Auto) 0.69 K/uL (1.2-3.4) Monocytes # (Auto) 0.41 K/uL (0.11-0.59) Eosinophils # (Auto) 0.02 K/uL (0-0.5) Basophils # (Auto) 0.00 K/uL (0-0.2) RDW Standard Deviation 47.3 fL (36.4-46.3) RDW Coefficient of Variation 14.4 % (11.5-14.5) Immature Granulocyte % (Auto) 0.2 % Immature Granulocyte # (Auto) 0.02 K/uL (0.00-0.02) Red Blood Cell Morphology Unremarkable Prothrombin Time 10.6 SECONDS (9.0-12.0) Prothromb Time International Ratio 1.0 (0.9-1.1) Activated Partial Thromboplast Time 27.3 SECONDS (21.0-31.0) Partial Thromboplastin Ratio 1.1 Anion Gap 5.0 mmol/L (3-11) Est Creatinine Clear Calc Drug Dose 35.7 ml/min Estimated GFR () 46.5 Estimated GFR (Non- 40.1 BUN/Creatinine Ratio 25.3 (10-20) Calcium Level 8.8 mg/dl (8.5-10.1) Magnesium Level 1.8 mg/dl (1.8-2.4) Total Bilirubin 0.6 mg/dl (0.2-1) Direct Bilirubin 0.2 mg/dl (0-0.2) Aspartate Amino Transf (AST/SGOT) 39 U/L (15-37) Alanine Aminotransferase (ALT/SGPT) 73 U/L (12-78) Alkaline Phosphatase 103 U/L (45-117) Total Creatine Kinase 330 U/L (26-192) Creatine Kinase MB 1.4 ng/ml (0.5-3.6) Creatine Kinase MB Ratio 0.4 (0-3.0) Troponin I < 0.015 ng/ml (0-0.045) Total Protein 6.4 gm/dl (6.4-8.2) Albumin 3.0 gm/dl (3.4-5.0) Thyroid Stimulating Hormone (TSH) 0.796 uIu/ml (0.300-4.500) Laboratory results as stated above per my review. Medications Administered Medications (Trade) Dose Ordered Sig/Akiko Route Start Time Stop Time Status Last Admin Dose Admin Sodium Chloride 1,000 ml @ 999 mls/hr Q1H1M STAT IV 02/20/17 22:59 02/20/17 23:59 DC 02/20/17 23:54 999 MLS/HR Ceftriaxone Sodium (Rocephin Inj) 1 gm NOW STAT IV 02/20/17 22:59 02/20/17 23:01 DC 02/20/17 23:55 1 GM ECG Indication: altered mental status Rate (beats per minute): 110 Rhythm: sinus tachycardia Findings: PAC, other (no acute injury) ED Course 2249: Previous medical records were reviewed. The patient was evaluated in room B6. A complete history and physical examination was performed. 2259: Rocephin Inj 1 gm IV, NSS 1000 ml @ 999 mls/hr IV. 0109: On reevaluation, the patient is resting comfortably. I discussed the results and findings with the patient. She verbalized agreement of the treatment plan. She was discharged home. Medical Decision Differential includes acute coronary syndrome, myocardial infarction, CVA, TIA, anemia, infection, pneumonia, UTI, pyelonephritis, poor nutrition, dehydration, electrolyte disturbance,hypoglycemia. This is a 77-year-old female who presents to the ED with a chief complaint of some visual hallucinations. The patient states that she had a hip replacement 2 days ago. This was due to some chronic hip pain. The patient reports that she has been having visual hallucinations for some time. She states as far back as April. The patient had some visual hallucinations tonight at the rehabilitation facility and was sent here for evaluation. Her initial blood pressure was elevated but did improve some while here. Her exam did not reveal any obvious infection of the hip area that had surgery but she did have some erythema to the medial aspect of the inner thigh that could be concerning for an early cellulitis . A CT scan of the brain and a chest x-ray did not show acute disease. EKG showed a sinus tach at a rate of 110 with some PACs. Hemoglobin is 8.2. This is unchanged from when she was discharged. BUN is 33 and creatinine is 1.3. Troponin was negative. Urine did not show infection. The patient was treated with IV fluids and some IV Rocephin. SHe is felt to be stable for discharge and outpatient follow-up. She'll be discharged on Keflex. Medication Reconcilliation Current Medication List: was personally reviewed by me Blood Pressure Screening Patient's blood pressure: Elevated blood pressure Blood pressure disposition: Referred to PCP Impression Primary Impression: Cellulitis Additional Impressions: Visual hallucination Dehydration Anemia Scribe Attestation The scribe's documentation has been prepared under my direction and personally reviewed by me in its entirety. I confirm that the note above accurately reflects all work, treatment, procedures, and medical decision making performed by me. Departure Information Dispostion Home / Self-Care Prescriptions Cephalexin Monohydrate (Keflex) 500 Mg Cap 500 MG PO QID, #28 CAP Prov: Steve Soliz D.O. 02/21/17 Referrals French Wise M.D. (PCP) Patient Instructions My [facility] Additional Instructions Keflex as prescribed for the right inner thigh cellulitis. Keep an eye on this. Should you develop worsening, follow-up with your doctor or return for recheck. Drink plenty of fluids. Follow-up with your doctor for further care and evaluation in 1-2 days. Return to the emergency department for worsening or new symptoms or any concerns. You have been examined and treated today on an emergency basis only. This is not a substitute for, or an effort to provide, complete comprehensive medical care. It is impossible to recognize and treat all injuries or illnesses in a single emergency department visit. It is therefore important that you follow up closely with your doctor. Call as soon as possible for an appointment. Problem Qualifiers
--- NOTE | 2017-02-21 06:40 | DIAGNOSTIC IMAGING REPORT ---
CHEST ONE VIEW PORTABLE CLINICAL HISTORY: EVALUATE ALTERED MENTAL STATUS/WEAKNESS dyspnea COMPARISON STUDY: 01/24/2017 FINDINGS: Stable postoperative changes right axilla. Lungs are clear. Mild tortuosity thoracic aorta. Diaphragms smooth. IMPRESSION: No acute process. No change from the prior study. The above report was generated using voice recognition software. It may contain grammatical, syntax or spelling errors. Electronically signed by: Kieran Oakes M.D. 02/21/2017 6:39 AM Dictated Date/Time: 02/21/2017 6:38 AM
--- NOTE | 2017-02-21 06:43 | DIAGNOSTIC IMAGING REPORT ---
HEAD WITHOUT CONTRAST (CT) CT DOSE: 537.48 mGy.cm HISTORY: Mental status change EVALUATE ALTERED MENTAL STATUS/WEAKNESS TECHNIQUE: Multiaxial CT images of the head were performed without the use of intravenous contrast. A dose lowering technique was utilized adhering to the principles of ALARA. Comparison: None. Findings: The paranasal sinuses and mastoid air cells are clear. The calvarium and skull base are intact. The ventricles and sulci are within normal limits. There is no mass, hematoma, midline shift, or acute infarct. Impression: No acute intracranial abnormality. The above report was generated using voice recognition software. It may contain grammatical, syntax or spelling errors. Electronically signed by: Kieran Oakes M.D. 02/21/2017 6:42 AM Dictated Date/Time: 02/21/2017 6:41 AM
[2017-02-21 07:00] VITALS: O2SAT 95
[2017-02-21 08:31] VITALS: BP 202/110; PULSE 116
== END 2017-02-21 08:32 | disposition home or self-care (01) ==
LOC: EDBD 21:51 → C.EDB 21:54
DX: R44.3 Hallucinations, unspecified (principal); L03.119 Cellulitis of unspecified part of limb; E86.0 Dehydration; D64.9 Anemia, unspecified; R00.0 Tachycardia, unspecified; M16.11 Unilateral primary osteoarthritis, right hip; Z96.641 Presence of right artificial hip joint; Z79.82 Long term (current) use of aspirin; Z79.899 Other long term (current) drug therapy; Z87.891 Personal history of nicotine dependence; Z88.8 Allergy status to other drugs, medicaments and biological substances

== ENCOUNTER → 2017-04-19 | Outpatient (CLI) | payer OTHER, BC ==
[~2017-04-19] MED LIST changes: -ACET-1138 PO; +ACET-1256 PO; -ALT25 PO; +BISA10SU7 RE; +CEPH500C PO; +DOCU100C31 PO; +LISI-461 PO; +MOML PO; +NF656 TOP; +POLY335019 PO; +SENN-61 PO; +VISCOUS LIDOCAINE
--- NOTE | 2017-04-19 15:55 | DIAGNOSTIC IMAGING REPORT ---
RIGHT ANKLE 3 VIEWS CLINICAL HISTORY: Right ankle pain. FINDINGS: 3 views of the right ankle are obtained. No prior studies are available for comparison at the time of dictation. The skeletal structures are osteopenic. No fracture is seen. The ankle mortise is intact. A large plantar calcaneal enthesophyte is noted. Degenerative spurring is seen along the dorsal aspect of the tarsal bones. There is soft tissue swelling around the ankle and a joint effusion. IMPRESSION: 1. Soft tissue swelling and joint effusion. No right ankle fracture is seen. 2. Osteopenia, degenerative change, and plantar heel spur as above. Electronically signed by: Elmo Ramey M.D. 04/19/2017 3:54 PM Dictated Date/Time: 04/19/2017 3:53 PM
[2017-04-19 16:17] LABS: BASO % 0.5 %; BASO ABS # 0.03 K/uL (0-0.2); COMPLETE YES; EOS % 1.7 %; IG% 0.5 %; LYMPH % 18.9 %; LYMPH ABS # 1.23 K/uL (1.2-3.4); MEAN CELL VOLUME 93.7 fL (80-100); MEAN CORPUSCULAR HEMOGLOBIN 29.8 pg (25-34); MEAN CORPUSCULAR HGB CONC 31.8 g/dl (32-36); MEAN PLATELET VOLUME 10.1 fL (7.4-10.4); MONO % 5.2 %; NEUT % 73.2 %; PLATELET COUNT 289 K/uL (130-400); RED BLOOD COUNT 3.63 M/uL (4.2-5.4); WHITE BLOOD COUNT 6.52 K/uL (4.8-10.8)
== END | disposition home or self-care (01) ==
LOC: C.RAD1850 14:52
PROVIDERS: ATTEND Internal Medicine
DX: M25.471 Effusion, right ankle (principal); M85.871 Other specified disorders of bone density and structure, right ankle and foot; M77.30 Calcaneal spur, unspecified foot

== ENCOUNTER → 2017-07-08 | Outpatient (CLI) | payer OTHER, BC ==
[2017-07-13 01:32] LABS: PARVOVIRUS IgG INDEX 4.1 (<0.9); PARVOVIRUS IgM INDEX 0.1 (<0.9)
== END | disposition home or self-care (01) ==
LOC: C.LABMFLN 09:08
PROVIDERS: ATTEND Internal Medicine
DX: I10 Essential (primary) hypertension (principal); C44.91 Basal cell carcinoma of skin, unspecified; D64.9 Anemia, unspecified